=== PATIENT | male | born 1995 | race African-American/Black ===

== ENCOUNTER 2021-11-15 10:50 | Emergency (ER) | payer OTHER ==
[2021-11-15 11:22] VITALS: BMI 17.9
[2021-11-15] MEDS ORDERED: SODIUM CHLORIDE 0.9% 500 ML INFUS.BAG IV ONE (12:46)
[2021-11-15 13:15] LABS: BASO % 0.5 % (0-2.0); EOS % 0.1 % (0-4.5); HEMATOCRIT 36.4 % (35.4-49); HEMOGLOBIN 12.9 GM/dL (11.7-16.9); MCH 25.7 pg (25.7-33.7); MCHC 35.3 g/dl (32.0-35.9); MEAN CELL VOLUME 72.7 fl (80-96); MEAN PLT VOLUME 9.3 fl (7.5-11.1); NEUT % 81.4 % (42.8-82.8); PLATELET COUNT 116 10^3/uL (134-434); RBC 5.01 M/mm3 (4.00-5.60); RDW 17.5 % (11.9-15.9); WHITE BLOOD COUNT 15.3 K/mm3 (4.0-10.0)
[2021-11-15 13:20] LABS: INR 1.18 (0.83-1.09); PROTHROMBIN TIME (PATIENT) 13.6 SEC (9.7-13.0)
[2021-11-15 13:23] LABS: ACTIVATED PTT 23.3 SECONDS (25.2-36.5)
[2021-11-15 13:40] LABS: CALCIUM 8.8 mg/dL (8.5-10.1)
[2021-11-15 13:41] LABS: ALBUMIN 4.2 g/dl (3.4-5.0); BLOOD UREA NITROGEN 13.2 mg/dL (7-18)
[2021-11-15 13:43] LABS: CREATININE 0.9 mg/dL (0.55-1.3)
[2021-11-15 13:44] LABS: TOT PROT 6.9 g/dl (6.4-8.2)
[2021-11-15 14:12] LABS: EPI CELLS 21 /uL (0-25.1); HYALINE CASTS 0 /uL (0-3.1); PH,URINE 6.5 (5.0-8.0); URINE APPEARANCE Cloudy; URINE BACTERIA 16 /uL (0-1359); URINE BILIRUBIN Negative (NEGATIVE); URINE COLOR Orange; URINE GLUCOSE (UA) Negative (NEGATIVE); URINE KETONE Negative (NEGATIVE); URINE LEUK ESTERASE Trace (NEGATIVE); URINE NITRITE Negative (NEGATIVE); URINE PROTEIN 30 (NEGATIVE); URINE RBC 14721 /uL (0-23.9); URINE WBC 42 /uL (0-25.8)
[2021-11-15 15:06] VITALS: BP 110/68; PULSE 68; TEMP 98.6
== END 2021-11-15 15:08 | disposition short-term general hospital (02) ==
LOC: JER 10:50
DX: R19.02 Left upper quadrant abdominal swelling, mass and lump (principal); R31.0 Gross hematuria; V00.131A Fall from skateboard, initial encounter
CPT/HCPCS: 36415; 71270-TC; 74178-TC; 80053; 81003; 85025; 85610; 85730; 86850; 86900; 86901; 87086; 99285-25; Q9967